=== PATIENT | male | born 1965 | race Hispanic/Latino ===

== ENCOUNTER 2017-08-04 16:26 | Observation (INO) | payer BC ==
[~2017-08-04] VITALS: Ht 172.7 cm; Wt 103.1 kg
[2017-08-04] MEDS ORDERED: SODIUM CHLORIDE 0.9% 1000ML 1,000 ML IV ONE (17:29)
[2017-08-04 17:33] LABS: BASOPHILS % (AUTO) 0.8 % (0.0-5.0); EOSINOPHILS % (AUTO) 3.1 % (0.0-8.0); HEMATOCRIT 45.1 % (42-54); LYMPHOCYTES % (AUTO) 24.1 % (21.0-51.0); MEAN CORPUSCULAR HEMOGLOBIN 29.2 pg (27.0-33.0); MEAN CORPUSCULAR HGB CONC 33.9 g/dL (32.0-36.0); MEAN CORPUSCULAR VOLUME 86.1 fL (79-99); MONOCYTES % (AUTO) 11.1 % (3.0-13.0); NEUTROPHILS % (AUTO) 60.9 % (40.0-77.0); PLATELET COUNT (AUTO) 191 K/uL (130-400); RED BLOOD CELL COUNT(AUTO) 5.24 MIL/uL (4.50-6.20); RED CELL DISTRIBUTION WIDTH 13.2 % (11.0-15.5); WHITE BLOOD COUNT (AUTO) 4.8 K/uL (4.8-10.8)
[2017-08-04 17:43] LABS: APPEARANCE,URINE Clear (CLEAR); BILIRUBIN,URINE Negative (NEGATIVE); COLOR,URINE Orange (YELLOW); GLUCOSE, URINE (UA) >=1000 mg/dL (NEGATIVE); KETONES,URINE Negative (NEGATIVE); LEUKOCYTE ESTERASE ,URINE Negative (NEGATIVE); NITRATE,URINE Negative (NEGATIVE); OCCULT BLOOD,URINE Large (NEGATIVE); PH,URINE 5.5 (5.0-8.0); PROTEIN,URINE Trace (NEGATIVE)
[2017-08-04 17:46] LABS: POTASSIUM 4.2 mmol/L (3.5-5.1)
[2017-08-04 17:52] LABS: INR 0.98 (0.85-1.15); PARTIAL THROMBOPLASTIN TIME 24.2 SEC (26.3-35.5); PROTHROMBIN TIME 10.3 SEC (9.6-11.6)
[2017-08-04 17:52] LABS: BACTERIA,URINE Rare /HPF (None Seen); RBC,URINE 26-50 /HPF (0-1); SQUAMOUS EPITHELIAL CELL,UR Rare /LPF (0-2); WBC,URINE 0-1 /HPF (0-1)
[2017-08-04] MEDS ORDERED: IOPAMIDOL-370 75 ML VIAL IV ONE (19:11)
[2017-08-04] MEDS ORDERED: INSULIN HUMULIN R 100 UNIT/ML 3ML ONE (19:19)
[2017-08-05 02:21] VITALS: BP 160/97
[2017-08-05 03:51] VITALS: BP 134/80
[2017-08-05] MEDS ORDERED: LIDOCAINE HCL-MPF 1% 2ML VIAL IJ PRN (04:00)
[2017-08-05] MEDS ORDERED: POTASSIUM CHLORIDE 20 MEQ ERTAB PO PRN (04:00)
[2017-08-05] MEDS ORDERED: NITROGLYCERIN 0.4 MG SL TAB SL PRN (04:00)
[2017-08-05] MEDS ORDERED: POTASSIUM CHLORIDE 10% ELIXIR 20 MEQ/15 ML UDCUP PO PRN (04:00)
[2017-08-05] MEDS ORDERED: ONDANSETRON HCL 4 MG/2 ML VIAL IVP PRN (04:00)
[2017-08-05] MEDS ORDERED: ZOLPIDEM TARTRATE 5 MG TAB PO PRN (04:00)
[2017-08-05] MEDS ORDERED: CLONIDINE HCL 0.1 MG TABLET PO PRN (04:00)
[2017-08-05] MEDS ORDERED: POTASSIUM CHLORIDE 20MEQ/100ML 100 ML IV PRN (04:00)
[2017-08-05] MEDS ORDERED: GLUCAGON 1MG KIT 1 MG ML IM PRN (04:00)
[2017-08-05] MEDS ORDERED: DEXTROSE 50%-WATER 50 ML DISP.SYRIN IV PRN (04:00)
[2017-08-05] MEDS ORDERED: ACETAMINOPHEN 325 MG TAB PO PRN (04:00)
[2017-08-05] MEDS ORDERED: LACTULOSE 20 GM/30 ML UDCUP PO PRN (04:00)
[2017-08-05] MEDS: SODIUM CHLORIDE 0.9% 1000ML 1,000 ML IV SCH ×2 (04:10→12:06)
[2017-08-05] MEDS ORDERED: HYDRALAZINE HCL 20 MG/ML VIAL IV PRN (04:15)
[2017-08-05] MEDS ORDERED: MEPERIDINE-PF 25 MG/ML SYG IV PRN (04:15)
[2017-08-05 04:28] LABS: CREATININE 0.7 mg/dL (0.5-1.5); POTASSIUM 3.7 mmol/L (3.5-5.1)
[2017-08-05 04:30] LABS: INR 1.02 (0.85-1.15); PROTHROMBIN TIME 10.7 SEC (9.6-11.6)
[2017-08-05 08:00] VITALS: BP 150/86
[2017-08-05] MEDS: INSULIN HUMULIN R 100 UNIT/ML 3ML SQ SCH ×4 (08:04→22:07)
[2017-08-05] MEDS: FAMOTIDINE 20MG TAB 20 MG TAB PO SCH ×2 (11:53→22:03)
[2017-08-05] MEDS: ACETAMINOPHEN 325 MG TAB PO PRN (11:58)
[2017-08-05 12:00] VITALS: BP 156/96
[2017-08-05 16:00] VITALS: BP 140/89
[2017-08-05 20:00] VITALS: BP 153/85
[2017-08-06] VITALS (7 sets, daily range): BP systolic 144–188; BP diastolic 81–112
[2017-08-06 04:24] LABS: MEAN CORPUSCULAR HEMOGLOBIN 29.7 pg (27.0-33.0); MEAN CORPUSCULAR HGB CONC 34.5 g/dL (32.0-36.0); MEAN CORPUSCULAR VOLUME 86.1 fL (79-99); PLATELET COUNT (AUTO) 164 K/uL (130-400); RED BLOOD CELL COUNT(AUTO) 4.88 MIL/uL (4.50-6.20); RED CELL DISTRIBUTION WIDTH 13.4 % (11.0-15.5); WHITE BLOOD COUNT (AUTO) 4.4 K/uL (4.8-10.8)
[2017-08-06] MEDS: INSULIN HUMULIN R 100 UNIT/ML 3ML SQ SCH ×4 (06:19→21:04)
[2017-08-06] MEDS: SODIUM CHLORIDE 0.9% 1000ML 1,000 ML IV SCH (08:04)
[2017-08-06] MEDS: FAMOTIDINE 20MG TAB 20 MG TAB PO SCH ×2 (08:18→20:11)
[2017-08-06] MEDS: ACETAMINOPHEN 325 MG TAB PO PRN (08:18)
[2017-08-06] MEDS ORDERED: ISOVUE-370 50ML VIAL IV ONE (10:22)
[2017-08-06] MEDS: AMLODIPINE BESYLATE 5 MG TAB PO SCH (20:11)
[2017-08-06] MEDS ORDERED: INSULIN DETEMIR 10ML 100 UNIT/ML 10ML SQ ONE (21:00)
[2017-08-07] VITALS: BP 132/76
[2017-08-07 03:49] VITALS: BP 145/84
[2017-08-07] MEDS: INSULIN HUMULIN R 100 UNIT/ML 3ML SQ SCH ×2 (06:05→12:15)
[2017-08-07 08:00] VITALS: BP 143/76
[2017-08-07] MEDS: AMLODIPINE BESYLATE 5 MG TAB PO SCH (10:00)
[2017-08-07] MEDS: FAMOTIDINE 20MG TAB 20 MG TAB PO SCH (10:00)
[2017-08-07 11:36] VITALS: BP 168/97
[2017-08-07] MEDS ORDERED: INSULIN HUMULIN R 100 UNIT/ML 3ML SQ ONE (12:10)
[2017-08-07] MEDS ORDERED: LISI-613 PO (12:44)
[2017-08-07] MEDS ORDERED: SIMV20TA6 PO (12:44)
[2017-08-07] MEDS ORDERED: METF850T2 PO (12:44)
== END 2017-08-07 14:00 | disposition home or self-care (01) ==
LOC: EDH 16:26 → EDHIP 20:40 → INTOOBSV 20:40 → 3CH 08-05 00:07
PROVIDERS: ADMIT Family Medicine; ATTEND Family Medicine
DX: R31.0 Gross hematuria (principal); N28.89 Other specified disorders of kidney and ureter; E11.65 Type 2 diabetes mellitus with hyperglycemia; E78.5 Hyperlipidemia, unspecified; I10 Essential (primary) hypertension; Z91.19 Patient's noncompliance with other medical treatment and regimen; Z91.14 Patient's other noncompliance with medication regimen; Z80.51 Family history of malignant neoplasm of kidney; F17.210 Nicotine dependence, cigarettes, uncomplicated
CPT/HCPCS: 36415 ×3; 71270; 74178; 76770; 78306; 80048 ×2; 81001; 82948 ×12; 85025; 85027; 85610 ×2; 85730 ×2; 87088; 87186; 96361 ×2; 96372 ×3; 96374; 96375; 99285; A9503; G0378 ×65; J0360; J1815 ×11; J2175; J7030 ×3; Q9967 ×2

== ENCOUNTER → 2020-12-12 | Outpatient (CLI) | payer OTHER ==
[~2020-12-12] MED LIST: LISI20TA24 PO; METF-445 PO; SIMV-43 PO
== END | disposition home or self-care (01) ==
LOC: SHCH 08:05
PROVIDERS: ATTEND Internal Medicine Cardiovascular Disease
DX: I08.1 Rheumatic disorders of both mitral and tricuspid valves (principal); R06.00 Dyspnea, unspecified; E66.9 Obesity, unspecified; E78.5 Hyperlipidemia, unspecified; E11.9 Type 2 diabetes mellitus without complications; I11.9 Hypertensive heart disease without heart failure
CPT/HCPCS: 93306; 93356

== ENCOUNTER → 2021-01-17 | Outpatient (CLI) | payer OTHER ==
[~2021-01-17] VITALS: Ht 172.7 cm; Wt 121.6 kg
[~2021-01-17] MED LIST changes: +REGADENOSON 0.4 MG/5 ML PF SYG IVP SCH
== END | disposition home or self-care (01) ==
LOC: SHCH 07:42
PROVIDERS: ATTEND Internal Medicine Cardiovascular Disease
DX: I42.9 Cardiomyopathy, unspecified (principal); R06.02 Shortness of breath; R07.9 Chest pain, unspecified; R94.31 Abnormal electrocardiogram [ECG] [EKG]
CPT/HCPCS: 78452; 93017; 96374; A9500 ×2; J2785

== ENCOUNTER 2021-06-05 06:51 | Observation (INO) | payer OTHER ==
[2021-05-30 10:09] LABS: EOSINOPHILS % (AUTO) 4.3 % (0.0-8.0); HEMATOCRIT 48.2 % (42-54); LYMPHOCYTES % (AUTO) 11.7 % (21.0-51.0); MEAN CORPUSCULAR HEMOGLOBIN 27.6 pg (27.0-33.0); MEAN CORPUSCULAR HGB CONC 31.3 g/dL (32.0-36.0); MEAN CORPUSCULAR VOLUME 88.1 fL (79-99); MONOCYTES % (AUTO) 8.6 % (3.0-13.0); NEUTROPHILS % (AUTO) 73.1 % (40.0-77.0); PLATELET COUNT (AUTO) 203 K/uL (130-400); RED BLOOD CELL COUNT(AUTO) 5.47 MIL/uL (4.50-6.20); RED CELL DISTRIBUTION WIDTH 15.2 % (11.0-15.5); WHITE BLOOD COUNT (AUTO) 6.9 K/uL (4.8-10.8)
[2021-05-30 10:21] LABS: CREATININE 2.3 mg/dL (0.5-1.5); POTASSIUM 4.9 mmol/L (3.5-5.1)
[2021-05-30 10:23] LABS: INR 1.01 (0.85-1.15)
[2021-05-30 10:24] LABS: PARTIAL THROMBOPLASTIN TIME 28.1 SEC (26.3-35.5)
[2021-06-05] VITALS (11 sets, daily range): BP systolic 134–167; BP diastolic 71–88
[~2021-06-05] VITALS: Ht 172.7 cm; Wt 122.1 kg
[~2021-06-05 06:51] MED LIST changes: +0.9% NACL 500ML IV.SOLN 500 ML IV SCH; +ALLO100T PO; +ATOR20TA65 PO; +BUDE10.2 IH; +CARV6.25 PO; +CEFAZOLIN SODIUM 1 GM VIAL IVP SCH; +FURO20TA4 PO; +GLIP5TAB11 PO; +LOSA100T58 PO; -METF-445 PO; +METO2.5T2 PO; +NAPR-1023 PO; +POTA-193 PO; -REGADENOSON 0.4 MG/5 ML PF SYG IVP SCH; -SIMV-43 PO; +VITAD50000 PO; +renavite PO
[2021-06-05] MEDS ORDERED: 0.9%NACL 1000ML 1,000 ML IV ONE (08:03)
[2021-06-05] MEDS ORDERED: LIDOCAINE HCL 1% MDV 50ML VIAL ONE (08:51)
[2021-06-05] MEDS ORDERED: IODIXANOL 320 MG/ML 100 ML VIAL ONE (08:51)
[2021-06-05] MEDS ORDERED: BUPIVACAINE/PF 0.25% 30ML VIAL IJ ONE (08:51)
[2021-06-05] MEDS ORDERED: MEPERIDINE-PF 25 MG/ML SYG ONE ×3 (09:39→10:13)
[2021-06-05] MEDS ORDERED: MIDAZOLAM HCL 1 MG/ML 2ML VIAL ONE ×3 (09:39→10:13)
[2021-06-05] MEDS ORDERED: ACETAMINOPHEN WITH CODEINE 1 TAB TAB PO PRN (12:00)
[2021-06-05] MEDS ORDERED: NAPROXEN 500 MG TABLET PO PRN (12:00)
[2021-06-05] MEDS ORDERED: DEXTROSE 50%-WATER 50 ML DISP.SYRIN IV PRN (15:00)
[2021-06-05] MEDS ORDERED: GLUCAGON 1MG KIT 1 MG ML IM PRN (15:00)
[2021-06-05] MEDS: INSULIN HUMULIN R 100 UNIT/ML 3ML SQ SCH ×2 (17:25→20:54)
[2021-06-05] MEDS: GLIPIZIDE 5 MG TABLET PO SCH (20:47)
[2021-06-05] MEDS: CARVEDILOL 6.25 MG TABLET PO SCH (20:47)
[2021-06-05] MEDS: FUROSEMIDE 20 MG TABLET PO SCH (20:47)
[2021-06-05] MEDS: SYMBICORT 160-4.5 MCG INHALER IH SCH (20:55)
[2021-06-05] MEDS ORDERED: ATORVASTATIN 20 MG TABLET PO SCH (21:00)
[2021-06-06 00:57] VITALS: BP 140/59
[2021-06-06 04:33] LABS: CREATININE 2.1 mg/dL (0.5-1.5); POTASSIUM 4.8 mmol/L (3.5-5.1)
[2021-06-06 04:34] VITALS: BP 132/71
[2021-06-06] MEDS: INSULIN HUMULIN R 100 UNIT/ML 3ML SQ SCH ×3 (05:41→15:43)
[2021-06-06 07:00] VITALS: BP 140/72
[2021-06-06] MEDS: CARVEDILOL 6.25 MG TABLET PO SCH (08:44)
[2021-06-06] MEDS: FUROSEMIDE 20 MG TABLET PO SCH (08:45)
[2021-06-06] MEDS: GLIPIZIDE 5 MG TABLET PO SCH (08:45)
[2021-06-06] MEDS: SYMBICORT 160-4.5 MCG INHALER IH SCH (08:51)
[2021-06-06] MEDS ORDERED: Vitamin B Complex/Vit C/Folic Acid PO SCH (09:00)
[2021-06-06] MEDS ORDERED: METOLAZONE 2.5 MG TABLET PO SCH (09:00)
[2021-06-06] MEDS ORDERED: KCL 20 MEQ ERTAB PO SCH (09:00)
[2021-06-06] MEDS ORDERED: LISINOPRIL 20 MG TABLET PO SCH (09:00)
[2021-06-06] MEDS ORDERED: LOSARTAN 100 MG TABLET PO SCH (09:00)
[2021-06-06] MEDS ORDERED: ALLOPURINOL 100 MG TABLET PO SCH (09:00)
[2021-06-06 11:00] VITALS: BP 166/82
[2021-06-06] MEDS ORDERED: BUDE10.2 IH (14:42)
[2021-06-06] MEDS ORDERED: TRAM50TA4 PO (14:42)
[2021-06-12] MEDS ORDERED: ERGOCALCIFEROL (VITAMIN D2) 50,000 UNIT CAPSULE PO SCH (09:00)
== END 2021-06-06 16:05 | disposition home or self-care (01) ==
LOC: DAH 06:51 → DAHIP 06:52 → 4DH 12:43
PROVIDERS: ADMIT Internal Medicine Cardiovascular Disease; ATTEND Internal Medicine Cardiovascular Disease
DX: I25.5 Ischemic cardiomyopathy (principal); I50.22 Chronic systolic (congestive) heart failure; E11.9 Type 2 diabetes mellitus without complications; I10 Essential (primary) hypertension; E78.5 Hyperlipidemia, unspecified; Z85.048 Personal history of other malignant neoplasm of rectum, rectosigmoid junction, and anus; Z79.899 Other long term (current) drug therapy
CPT/HCPCS: 33225; 33249; 36415 ×2; 71045; 80048 ×2; 82948 ×7; 85025; 85610; 85730; 93005; 96372; A4215; A4216; A4221; A4222; A4223 ×3; A4606; A4663; A6260; C1769 ×3; C1882; C1895; C1896; C1900; G0378 ×28; J0690; J1815; J2175 ×3; J2250 ×3; J3490 ×2; J7030; Q9967; 99156; 99157

== ENCOUNTER → 2024-08-15 | Outpatient (CLI) | payer SELFPAY ==
[~2024-08-15] MED LIST changes: -0.9% NACL 500ML IV.SOLN 500 ML IV SCH; -CEFAZOLIN SODIUM 1 GM VIAL IVP SCH; -GLIP5TAB11 PO; +GLIP5TAB15 PO; -LOSA100T58 PO; +LOSA100T59 PO; +TRAM50TA4 PO
[2024-08-15 12:46] LABS: CREATININE 3.1 mg/dL (0.5-1.3); POTASSIUM 5.1 mmol/L (3.5-5.1)
== END | disposition home or self-care (01) ==
LOC: LAB 10:47
PROVIDERS: ATTEND Internal Medicine Cardiovascular Disease
DX: I10 Essential (primary) hypertension (principal)
CPT/HCPCS: 36415; 80048